=== PATIENT | female | born 1950 | race Caucasian/White ===

== ENCOUNTER 2019-11-11 11:58 | Inpatient (IN) | payer BC, MEDICARE, OTHER ==
[2019-11-11] MEDS ORDERED: Sodium Chloride 0.9% 10 ML Syringe FLUSH PRN ×2 (12:25→14:10)
[2019-11-11] MEDS ORDERED: Prochlorperazine 10 MG/2 ML SDV IVPUSH ONE (12:26)
--- NOTE | 2019-11-11 12:38 | EDM.PDOC ---
ED HPI GENERAL MEDICAL PROBLEM - General Chief Complaint: Abdominal Pain Stated Complaint: ABD PAIN AND VOMITING Time Seen by Provider: 11/11/19 12:20 Source of Information: Reports: Patient, Old Records, RN History Limitations: Reports: No Limitations - History of Present Illness INITIAL COMMENTS - FREE TEXT/NARRATIVE: 69 yo female presents with vomiting and epigastric pain since early yesterday. Had gastric bypass per Dr. Tatum about 7 yrs ago. No hematemesis. BM's have been normal. Pain is worse if she tries to swallow anything. Lives in [place]. Onset: Sudden Onset Date: 11/10/19 Duration: Day(s): (1+), Constant Location: Reports: Abdomen (upper) Quality: Reports: Pressure Severity: Moderate Improves with: Reports: Other (not eating or drinking) Worsens with: Reports: Eating (or drinking) Context: Reports: Other (see HPI) Associated Symptoms: Reports: Nausea/Vomiting. 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 (see below) (none) abdominal Pain Score (Numeric/FACES): 3 - Related Data Allergies Allergy/AdvReac Type Severity Reaction Status Date / Time hydromorphone HCl Allergy Mild Itching Verified 11/11/19 12:22 [From Dilaudid] Home Meds: Home Meds Amitriptyline HCl 50 mg PO DAILY 03/18/13 [History] Citalopram Hydrobromide [Citalopram HBr] 20 mg PO DAILY 03/18/13 [History] LORazepam [Ativan] 1 mg PO ASDIRECTED PRN 03/18/13 [History] buPROPion [Wellbutrin XL] 150 mg PO ASDIRECTED 03/18/13 [History] buPROPion [Wellbutrin] 2 tab PO QAM 04/22/13 [History] ED ROS GENERAL - Review of Systems Review Of Systems: See Below Constitutional: Reports: No Symptoms HEENT: Reports: No Symptoms Respiratory: Reports: No Symptoms Cardiovascular: Reports: No Symptoms GI/Abdominal: Reports: Abdominal Pain, Nausea, Vomiting. Denies: Black Stool, Bloody Stool, Constipation, Diarrhea, Distension, Flatus, Hematemesis, Hematochezia : Reports: No Symptoms Musculoskeletal: Reports: No Symptoms Skin: Reports: No Symptoms Neurological: Reports: No Symptoms ED EXAM, GI/ABD - Physical Exam Exam: See Below Exam Limited By: No Limitations General Appearance: Alert, WD/WN, No Apparent Distress Eyes: Bilateral: Normal Appearance Ears: Normal External Exam, Normal Canal, Hearing Grossly Normal Nose: Normal Inspection, No Blood Throat/Mouth: Normal Inspection, Normal Lips, Normal Oropharynx, Normal Voice, No Airway Compromise Head: Atraumatic, Normocephalic Neck: Normal Inspection Respiratory/Chest: No Respiratory Distress, Lungs Clear, Normal Breath Sounds, No Accessory Muscle Use Cardiovascular: Regular Rate, Rhythm, No Edema GI/Abdominal Exam: Soft, No Distention, Tender (epigastrium). No: Non-Tender, Distended, Guarding, Rigid, Rebound Back Exam: Normal Inspection. No: CVA Tenderness (R), CVA Tenderness (L) Extremities: Normal Inspection, Normal Range of Motion, Non-Tender, No Pedal Edema Neurological: Alert, Oriented, CN II-XII Intact, Normal Cognition, No Motor/ Sensory Deficits Psychiatric: Normal Affect, Normal Mood Skin Exam: Warm, Dry, Intact, Normal Color, No Rash Course - Vital Signs Text/Narrative:: Dr. Tatum called @ 1509h Last Recorded V/S: Last Vital Signs Temp 35.8 C L 11/11/19 12:34 Pulse 61 11/11/19 14:48 Resp 12 11/11/19 14:48 BP 124/63 11/11/19 14:48 Pulse Ox 100 11/11/19 14:48 - Orders/Labs/Meds Orders: Active Orders 24 hr Category Date Time Status Abdomen Pelvis w Cont [CT] Stat Exams 11/11/19 13:35 Taken Lactated Ringers @ 150 MLS/HR(1,000ml) Med 11/11/19 15:15 Ordered Lactated Ringers [Ringers, Lactated] 1,000 ml IV ASDIRECTED Lactated Ringers [Ringers, Lactated] 1,000 ml Med 11/11/19 12:45 Active IV ASDIRECTED Sodium Chloride 0.9% [Saline Flush] Med 11/11/19 12:25 Active 10 ml FLUSH ASDIRECTED PRN Saline Lock Insert [OM.PC] Routine Oth 11/11/19 12:25 Ordered Medication Orders Lactated Ringer's (Ringers, Lactated) 1,000 mls @ 500 mls/hr IV ASDIRECTED LOYDA Last Admin: 11/11/19 12:44 Dose: 500 mls/hr Lactated Ringer's (Ringers, Lactated) 1,000 mls @ 150 mls/hr IV ASDIRECTED LOYDA Sodium Chloride (Saline Flush) 10 ml FLUSH ASDIRECTED PRN PRN Reason: Keep Vein Open Labs: Laboratory Tests 11/11/19 11/11/19 11/11/19 Range/Units 12:35 12:35 12:35 WBC 8.3 (4.5-11.0) K/uL RBC 5.16 (3.30-5.50) M/uL Hgb 15.2 H D (12.0-15.0) g/dL Hct 48.1 H (36.0-48.0) % MCV 93 (80-98) fL MCH 30 (27-31) pg MCHC 32 (32-36) % Plt Count 334 (150-400) K/uL Sodium 140 (140-148) mmol/L Potassium 4.6 (3.6-5.2) mmol/L Chloride 103 (100-108) mmol/L Carbon Dioxide 29 (21-32) mmol/L Anion Gap 8.1 (5.0-14.0) mmol/L BUN 19 H D (7-18) mg/dL Creatinine 1.2 H D (0.6-1.0) mg/dL Est Cr Clr Drug Dosing 34.33 mL/min Estimated GFR (MDRD) 45 L (>60) Glucose 109 H (74-106) mg/dL Calcium 9.3 (8.5-10.1) mg/dL Lipase (73-393) U/L Urine Color Yellow (YELLOW) Urine Appearance Cloudy A (CLEAR) Urine pH 7.0 (5.0-8.0) Ur Specific [place] 1.025 (1.008-1.030) Urine Protein 30 H (NEGATIVE) mg/dL Urine Glucose (UA) Negative (NEGATIVE) mg/dL Urine Ketones Trace H (NEGATIVE) mg/dL Urine Occult Blood Negative (NEGATIVE) Urine Nitrite Negative (NEGATIVE) Urine Bilirubin Small H (NEGATIVE) Urine Urobilinogen 1.0 (0.2-1.0) EU/dL Ur Leukocyte Esterase Small H (NEGATIVE) Urine RBC 0-5 (0-5) Urine WBC 5-10 H (0-5) Ur Epithelial Cells Rare Amorphous Sediment Many Urine Bacteria Few Urine Mucus Many Urine Other See note 11/11/19 Range/Units 12:41 WBC (4.5-11.0) K/uL RBC (3.30-5.50) M/uL Hgb (12.0-15.0) g/dL Hct (36.0-48.0) % MCV (80-98) fL MCH (27-31) pg MCHC (32-36) % Plt Count (150-400) K/uL Sodium (140-148) mmol/L Potassium (3.6-5.2) mmol/L Chloride (100-108) mmol/L Carbon Dioxide (21-32) mmol/L Anion Gap (5.0-14.0) mmol/L BUN (7-18) mg/dL Creatinine (0.6-1.0) mg/dL Est Cr Clr Drug Dosing mL/min Estimated GFR (MDRD) (>60) Glucose (74-106) mg/dL Calcium (8.5-10.1) mg/dL Lipase 250 (73-393) U/L Urine Color (YELLOW) Urine Appearance (CLEAR) Urine pH (5.0-8.0) Ur Specific [place] (1.008-1.030) Urine Protein (NEGATIVE) mg/dL Urine Glucose (UA) (NEGATIVE) mg/dL Urine Ketones (NEGATIVE) mg/dL Urine Occult Blood (NEGATIVE) Urine Nitrite (NEGATIVE) Urine Bilirubin (NEGATIVE) Urine Urobilinogen (0.2-1.0) EU/dL Ur Leukocyte Esterase (NEGATIVE) Urine RBC (0-5) Urine WBC (0-5) Ur Epithelial Cells Amorphous Sediment Urine Bacteria Urine Mucus Urine Other Meds: Medications Generic Name Dose Route Start Last Admin Trade Name Freq PRN Reason Stop Dose Admin Lactated Ringer's 1,000 mls @ 500 mls/hr 11/11/19 12:45 11/11/19 12:44 Ringers, Lactated IV 500 mls/hr ASDIRECTED LOYDA Administration Lactated Ringer's 1,000 mls @ 150 mls/hr 11/11/19 15:15 Ringers, Lactated IV ASDIRECTED LOYDA Sodium Chloride 10 ml 11/11/19 12:25 Saline Flush FLUSH ASDIRECTED PRN Keep Vein Open Discontinued Medications Generic Name Dose Route Start Last Admin Trade Name Freq PRN Reason Stop Dose Admin Sodium Chloride 70 mls @ 3 mls/sec 11/11/19 14:15 11/11/19 14:37 Normal Saline IV 11/11/19 14:16 3 mls/sec ASDIRECTED LOYDA Administration Iopamidol 92 ml 11/11/19 14:10 11/11/19 14:37 Isovue-300 (61%) IV 11/11/19 14:11 92 ml ONETIME ONE Administration Prochlorperazine Edisylate 5 mg 11/11/19 12:26 11/11/19 12:45 Compazine IVPUSH 11/11/19 12:27 5 mg ONETIME ONE Administration Sodium Chloride 10 ml 11/11/19 14:10 11/11/19 14:37 Saline Flush FLUSH 11/11/19 14:11 10 ml ONETIME PRN Administration per radiology protocol - Radiology Interpretation Free Text/Narrative:: CT abd/pelvis with IV contrast-SBO CT Results Date: 11/11/19 CT Results Time: 15:08 Departure - Departure Time of Disposition: 15:25 Disposition: Admitted As Inpatient 68 Condition: Fair Clinical Impression: SBO (small bowel obstruction) - Discharge Information *PRESCRIPTION DRUG MONITORING PROGRAM REVIEWED*: Not Applicable *COPY OF PRESCRIPTION DRUG MONITORING REPORT IN PATIENT BALA: Not Applicable Referrals: PCP,None [Primary Care Provider] - Forms: ED Department Discharge Sepsis Event Note (ED) - Focused Exam Vital Signs: Vital Signs Temp Pulse Resp BP Pulse Ox 11/11/19 14:48 61 12 124/63 100 11/11/19 13:38 70 12 126/67 98 11/11/19 12:34 35.8 C L 80 16 131/77 99 11/11/19 12:21 35.8 C L 80 16 131/77 99 - My Orders Last 24 Hours: My Active Orders 11/11/19 12:25 Sodium Chloride 0.9% [Saline Flush] 10 ml FLUSH ASDIRECTED PRN Saline Lock Insert [OM.PC] Routine 11/11/19 12:45 Lactated Ringers [Ringers, Lactated] 1,000 ml IV ASDIRECTED 11/11/19 13:35 Abdomen Pelvis w Cont [CT] Stat 11/11/19 15:15 Lactated Ringers @ 150 MLS/HR(1,000ml) Lactated Ringers [Ringers, Lactated] 1, 000 ml IV ASDIRECTED - Assessment/Plan Last 24 Hours: My Active Orders 11/11/19 12:25 Sodium Chloride 0.9% [Saline Flush] 10 ml FLUSH ASDIRECTED PRN Saline Lock Insert [OM.PC] Routine 11/11/19 12:45 Lactated Ringers [Ringers, Lactated] 1,000 ml IV ASDIRECTED 11/11/19 13:35 Abdomen Pelvis w Cont [CT] Stat 11/11/19 15:15 Lactated Ringers @ 150 MLS/HR(1,000ml) Lactated Ringers [Ringers, Lactated] 1, 000 ml IV ASDIRECTED
[2019-11-11] MEDS ORDERED: Lactated Ringers 1,000 ML IV SCH ×2 (12:45→15:15)
[2019-11-11] MEDS ORDERED: Iopamidol 612 MG/ML 500 ML Multipack Bottle IV ONE (14:10)
--- NOTE | 2019-11-11 15:32 | CT ---
Abdomen Pelvis w Cont CLINICAL HISTORY: Postprandial 20, previous bariatric surgery COMPARISON: None. TECHNIQUE: Axial tomographic images are obtained from the dome of the diaphragm to the pubic symphysis with IV contrast enhancement. No oral contrast was used. Auto dosage reduction and iterative reconstruction techniques employed. FINDINGS: There is dilatation of the gastric remanent outgoing lobe of the Yusuf-en-Y down to the left lower quadrant. There is some fluid in the distal esophagus also. There is dilated bowel in the right and midabdomen with with some fecalization of small bowel content. There is some counterclockwise swirling of the descending mesenteric vessels The lung bases are clear. The liver shows no biliary dilatation. There is a 9 mm low-attenuation focus in the posterior segment of the right lobe. This most likely represents a small cyst.. The gallbladder has been removed. The spleen has a normal size and shape. The pancreas shows no mass or inflammatory change. The adrenal glands appear normal bilaterally. There is a subcentimeter cyst on the right kidney. No stones or hydronephrosis seen. The aorta has a normal contour. There is no suspicious retroperitoneal adenopathy. IMPRESSION: Prior bariatric surgery Partial small bowel obstruction
[2019-11-11] MEDS ORDERED: Ondansetron 4 MG/2 ML SDV IVPUSH PRN (15:51)
[2019-11-11] MEDS: Pantoprazole 40 MG Vial IVPUSH SCH (18:49)
[2019-11-11] MEDS: Dextrose 5%-Lactated Ringers 1,000 ML IV SCH (21:50)
[2019-11-12] MEDS: Dextrose 5%-Lactated Ringers 1,000 ML IV SCH ×3 (04:13→21:12)
[2019-11-12] MEDS ORDERED: Bupivacaine 0.5% 50 ML MDV ONE (06:17)
[2019-11-12] MEDS ORDERED: Ondansetron 4 MG/2 ML SDV ONE (06:17)
[2019-11-12] MEDS ORDERED: Meropenem 500 MG SDV ONE (06:17)
[2019-11-12] MEDS ORDERED: Dexamethasone 4 MG/ML SDV ONE (06:17)
[2019-11-12] MEDS ORDERED: fentaNYL 250 MCG/5 ML SDV ONE ×2 (06:17→07:52)
[2019-11-12] MEDS ORDERED: Neostigmine Methylsulfate 1 MG/ML 5 ML Syringe ONE (06:17)
[2019-11-12] MEDS ORDERED: Succinylcholine 200 MG/10 ML MDV ONE (06:17)
[2019-11-12] MEDS ORDERED: Rocuronium 50 MG/5 ML Vial ONE (06:17)
[2019-11-12] MEDS ORDERED: Glycopyrrolate 0.2 MG/ML 5 ML MDV ONE (06:17)
[2019-11-12] MEDS ORDERED: Lidocaine 1% with EPINEPHrine 1:100,000 50 ML MDV ONE (06:17)
[2019-11-12] MEDS ORDERED: Propofol 200 MG/20 ML SDV ONE (06:17)
[2019-11-12] MEDS ORDERED: cefOXitin 2 GM in Sodium Chloride 0.9% 50 ML IV ONE (07:15)
[2019-11-12] MEDS ORDERED: Ketamine 50 MG in Sodium Chloride 0.9% 49.5 ML IV SCH (07:30)
[2019-11-12] MEDS ORDERED: Ketamine 500 MG/5 ML MDV IV SCH (07:30)
[2019-11-12] MEDS ORDERED: Magnesium Sulfate 2.9 GM in Sodium Chloride 0.9% 250 ML IV ONE (07:30)
[2019-11-12] MEDS ORDERED: Magnesium Sulfate 1.8 GM in Sodium Chloride 0.9% 100 ML IV SCH (07:30)
[2019-11-12] MEDS ORDERED: Ropivacaine 30 ML, dexAMETHasone 8 MG, EPINEPHrine 0.4 MG, Sodium Chloride 0.9% 47.6 ML NERVRT SCH ×4 (07:30)
[2019-11-12] MEDS ORDERED: Celecoxib 200 MG Cap PO SCH (09:00)
[2019-11-12] MEDS ORDERED: hydrOXYzine HCL 100 MG/2 ML SDV IM ONE (09:31)
[2019-11-12] MEDS ORDERED: Calcium Gluconate 10% 1 GM/10 ML SDV IVPUSH PRN (10:24)
[2019-11-12] MEDS ORDERED: Metoclopramide 10 MG/2 ML SDV IVPUSH PRN (10:24)
[2019-11-12] MEDS ORDERED: Morphine 4 MG/ML Syringe IVPUSH PRN (10:24)
[2019-11-12] MEDS ORDERED: Labetalol 20 MG/4 ML Syringe IVPUSH PRN (10:24)
[2019-11-12] MEDS ORDERED: Acetaminophen 500 MG Tab PO PRN (10:24)
[2019-11-12] MEDS ORDERED: diphenhydrAMINE 50 MG/ML SDV IVPUSH PRN (10:24)
[2019-11-12] MEDS ORDERED: SCOPOLAMINE PATCH CHECK TOP SCH (10:24)
[2019-11-12] MEDS ORDERED: hydrOXYzine HCL 100 MG/2 ML SDV IM PRN (10:24)
[2019-11-12] MEDS ORDERED: Ondansetron 4 MG/2 ML SDV IVPUSH PRN (10:24)
[2019-11-12] MEDS ORDERED: Cyclobenzaprine 10 MG Tab PO PRN (10:24)
[2019-11-12] MEDS ORDERED: LORazepam 1 MG Tab PO PRN (10:33)
[2019-11-12] MEDS: oxyCODONE 5 MG Tab PO PRN ×2 (11:45→17:35)
[2019-11-12] MEDS: Morphine 2 MG/ML SYRINGE IVPUSH PRN ×2 (11:45→15:26)
[2019-11-12] MEDS: Citalopram 20 MG Tab PO SCH (11:49)
[2019-11-12] MEDS: cefOXitin 2 GM in Sodium Chloride 0.9% 50 ML IV SCH ×2 (13:50→19:38)
[2019-11-12] MEDS: Acetaminophen 500 MG Tab PO SCH ×2 (15:15→21:04)
[2019-11-12] MEDS: Heparin Sodium 5,000 Units/ML Vial SUBCUT SCH (15:29)
[2019-11-12] MEDS: Pantoprazole 40 MG Vial IVPUSH SCH (17:29)
[2019-11-12] MEDS: MVI, Adult with Vitamin K 10 ML, Thiamine 200 MG, Chromium/Copper/Mang/Selen/Zn 1 ML in... IV SCH ×4 (17:38)
[2019-11-13] MEDS: cefOXitin 2 GM in Sodium Chloride 0.9% 50 ML IV SCH (00:56)
[2019-11-13] MEDS: oxyCODONE 5 MG Tab PO PRN ×5 (01:05→21:56)
[2019-11-13] MEDS ORDERED: Iopamidol 612 MG/ML 50 ML SDV PO STA (04:09)
[2019-11-13] MEDS: Dextrose 5%-Lactated Ringers 1,000 ML IV SCH (04:21)
[2019-11-13] MEDS: Morphine 2 MG/ML SYRINGE IVPUSH PRN ×3 (04:26→20:29)
[2019-11-13] MEDS: Heparin Sodium 5,000 Units/ML Vial SUBCUT SCH ×2 (05:03→17:13)
[2019-11-13] MEDS: Acetaminophen 500 MG Tab PO SCH ×3 (05:03→21:56)
[2019-11-13] MEDS ORDERED: Dextrose 5%-Lactated Ringers 1,000 ML IV SCH (08:15)
[2019-11-13] MEDS: Celecoxib 200 MG Cap PO SCH ×2 (08:40→20:32)
[2019-11-13] MEDS: Bisacodyl 5 MG Tab PO SCH ×2 (08:41→20:32)
[2019-11-13] MEDS: Docusate Sodium 100 MG Cap PO SCH ×2 (08:41→20:32)
[2019-11-13] MEDS: Citalopram 20 MG Tab PO SCH (08:41)
--- NOTE | 2019-11-13 13:15 | PN ---
DATE OF SERVICE: 11/13/2019 The patient has been afebrile with stable vital signs. Her pain control is a little bit marginal with a q.6 hours oxycodone regimen and will go up to q.4 hours with that, otherwise begin a step-3 diet with back down on the IV rate. We will begin some bowel stimulation and tentatively plan for discharge home tomorrow. Jossue Tatum MD /[id number]
[2019-11-13] MEDS: MVI, Adult with Vitamin K 10 ML, Thiamine 200 MG, Chromium/Copper/Mang/Selen/Zn 1 ML in... IV SCH ×8 (14:16→15:28)
[2019-11-13] MEDS: Pantoprazole 40 MG Vial IVPUSH SCH (17:13)
[2019-11-13] MEDS ORDERED: diphenhydrAMINE 25 MG Cap PO PRN (22:39)
[2019-11-13] MEDS ORDERED: Metoclopramide 10 MG Tab PO PRN (22:40)
[2019-11-13] MEDS ORDERED: Ondansetron 4 MG Tab.DIS PO PRN (22:40)
[2019-11-14] MEDS: oxyCODONE 5 MG Tab PO PRN ×2 (02:09→07:47)
[2019-11-14 03:45] VITALS: PULSE 65
[2019-11-14] MEDS: Heparin Sodium 5,000 Units/ML Vial SUBCUT SCH (05:02)
[2019-11-14] MEDS: Acetaminophen 500 MG Tab PO SCH (05:02)
[2019-11-14 07:06] VITALS: BP 163/83
[2019-11-14] MEDS ORDERED: Cyanocobalamin (Vitamin B12) 1,000 MCG/ML SDV IM ONE (09:00)
--- NOTE | 2019-11-14 09:55 | CR ---
UGI Limited HISTORY: Postbariatric surgery FINDINGS: Patient swallowed water-soluble contrast. Upright views of the abdomen show no evidence of extravasation or obstruction. IMPRESSION: Status post bariatric surgery No extravasation or obstruction seen
--- NOTE | 2019-11-14 12:13 | DISCH ---
ADMISSION DIAGNOSES: Abdominal pain, nausea, vomiting, status post Yusuf-en-Y gastric bypass surgery, unspecified surgical malabsorption, B12 deficiency, vitamin D deficiency, anxiety and depression. DISCHARGE DIAGNOSES: Exploratory laparotomy with lysis of adhesions: 1. Reduction of small bowel volvulus and closure of internal hernia. 2. Revision of a jejunojejunostomy Yusuf-en-Y gastric bypass. 3. Separate small bowel strictureplasty. 4. Placement of Interceed mesh. POSTOPERATIVE DIAGNOSES: 1. Small bowel obstruction secondary to small bowel volvulus. 2. Edematous jejunojejunostomy. 3. Separate small-bowel stricture at the jejunojejunostomy biliary pancreatic limb. 4. Excision of intra-abdominal adhesions. 5. Date of surgery: 11/12/2019. Surgeon: Jossue Tatum MD. HISTORY: Laureen Fowler is a 69-year-old female with history of Yusuf-en-Y gastric bypass surgery. She presented to the emergency room with almost a 36-hour history of vomiting, mid epigastric abdominal pain. After preoperative evaluation and discussion of possible risks and possible complications, she wished to proceed with surgical procedure. HOSPITAL COURSE: She was admitted on 11/11/2019, given IV fluids, and had her surgery on 11/12/2019. She had no operative complications. On postoperative day #1, started on a step 3 gastric bypass diet. Her IV rate was decreased to 100 mL per hour. Vital signs were stable. She was given bowel stimulation. On 11/14/2019, she was able to be discharged to home. PHYSICAL EXAMINATION: GENERAL: Laureen Fowler is a pleasant 69-year-old female. VITAL SIGNS: Height is 5 feet 1 inch, weight is 135 pounds, BMI 25.5. TPR at 06:56, 97.9; 65; 18; blood pressure 163/83. HEENT: Negative. NECK: Supple. HEART: Regular rate and rhythm. LUNGS: Clear. ABDOMEN: Aquacel dressing is on, will be replaced prior to discharge. Abdominal binder has been on. EXTREMITIES: Without peripheral edema. DISPOSITION: Discharged to home. CONDITION: Stable and improving. FOLLOWUP: Appointment with Eliana Saucedo PA-C, on 11/22/2019 at 11 a.m. HOME MEDICATIONS: 1. Tylenol 1000 mg every 8 hours p.r.n. pain. 2. Celebrex 200 mg oral b.i.d. scheduled, #28. 3. Flexeril 10 mg oral every 8 hours p.r.n. muscle spasms. 4. Zofran ODT 4 mg every 4 hours p.r.n. nausea, #30. 5. Oxycodone 5 mg every 4 hours p.r.n. pain, #42. 6. She is to resume her home medications of: a. Citalopram 20 mg oral daily. b. Ativan 1 mg oral as directed p.r.n. anxiety. c. Wellbutrin 75 mg oral twice daily. DIET AFTER DISCHARGE: Step 3 gastric bypass diet. Drink 8 to 10 glasses of water a day. ACTIVITY: No lifting greater than 10 pounds for 6 weeks. OTHER ACTIVITY: Walk 10 minutes for every 1 hour in the car. Driving: Do not drive for 1 week. Shower/bathing: May shower. DISCHARGE INSTRUCTIONS: Notify provider if any increased pain, nausea, vomiting, redness. Wound incision care: Keep site clean and dry. Take off Aquacel dressing on , 11/17/2019. Wear abdominal binder for 6 weeks if tolerated. SPECIAL INSTRUCTIONS: 1. Use incentive spirometer 10 times every hour while awake. 2. When in the airplane, stand or get up and walk at least every hour. 3. To take 1 baby aspirin a day until 1st appointment. 4. Wear thigh high WARREN stockings when traveling in the car and plane. You can wear them at other times if you want to.
[2019-11-14] MEDS ORDERED: Pantoprazole 40 MG Tab.CR PO SCH (16:00)
--- NOTE | 2019-11-16 13:22 | OR ---
DATE OF PROCEDURE: 11/12/2019 SURGEON: Jossue Tatum MD PREOPERATIVE DIAGNOSIS: Small bowel obstruction. POSTOPERATIVE DIAGNOSES: 1. Small bowel obstruction secondary to small bowel volvulus with distorted and edematous jejunojejunostomy. 2. Separate small bowel stricture at biliopancreatic common limb anastomotic site. 3. Extensive intraabdominal adhesions. OPERATIVE PROCEDURES: Exploratory laparotomy with lysis of adhesions, 1. Reduction of small bowel volvulus and closure of internal hernia (47947). 2. Revision of jejunojejunostomy component of Yusuf-en-Y gastric bypass (21763). 3. Separate small bowel stricturoplasty ([id number]). 4. Placement of Interceed mesh across the pelvic and abdominal wall to limit recurrent adhesion formation between those surfaces and underlying viscera ([id number]). ANESTHESIA: General. INDICATION FOR PROCEDURE: This is a 69-year-old, presenting status post Yusuf-en-Y gastric bypass with picture of a small bowel obstruction. CT scan showed some evidence of swelling consistent with some probable volvulus. Plan is to proceed with a limited laparotomy with reduction of volvulus as identified and small bowel resection as indicated. Potential risks including bleeding, infection, injury to underlying viscera, possible recurrence of the small bowel obstruction over time were all reviewed with the patient, and she wishes to proceed. DETAILS OF PROCEDURE: The patient was taken to the operating room and after general endotracheal anesthesia was induced, a Renner catheter was inserted, and the abdomen prepped and draped. An incision was then made from the umbilicus, roughly a handsbreadth, toward the xiphoid and continued down through the skin, subcutaneous tissue, and fascia. Upon entering the peritoneal cavity, significant amount of the small bowel was noted to have somewhat grayish-appearance, consistent with some venous hypertension. As the bowel was evaluated, it was noted that there was a volvulus between most of the small bowel underneath the Yusuf limb as it passed up toward the epigastric area. This was eventually reduced and, at that point, all of the bowel appeared to be viable. There was marked edema and narrowing of the point where the Yusuf limb entered the jejunojejunostomy. It was felt that anastomosis will need to be revised. This was initially divided at the level of junction of the Uysuf limb and the jejunojejunostomy with SMILEY stapler and so a segment of the small bowel was resected and sent for histologic evaluation. The point where the common limb was attached to the biliopancreatic limb was noted to be quite stenotic. At this point, this was revised additionally with a stricturoplasty. The antimesenteric aspect of that junction was opened and one limb of a 60-mm SMILEY galdamez load was placed into the bowel on each side and fired. The common opening was then closed transversely with the SMILEY purple load. The angles of anastomosis were reinforced with some 3-0 Vicryl stitch. In this case, there was no mesenteric defect to close. The Yusuf limb was then reattached to the small bowel roughly 30 cm distal to the previous anastomosis with a [id number] enteroenterostomy with internal firing of the SMILEY 60 mm stapler. Common opening was then closed transversely with purple load, and the angles of anastomosis were reinforced with some 3-0 Vicryl stitch. In this case, the mesenteric defect was closed with a 2-0 silk stitch to provide some permanency. The mesenteric defect underlying the Yusuf limb was then also closed with a running 2-0 silk stitch. At this point, no further problems were noted. The abdomen was irrigated with meropenem-containing saline solution. Interceed mesh was then placed underneath the incision and from there down toward the pelvis to limit recurrent adhesion formation between all those surfaces and the underlying viscera. The midline fascia was then approximated with #2 Vicryl stitch. Subcutaneous tissue was approximated with two layers of 3-0 and 4-0 Vicryl stitch, and the skin with madhavi. Prior to closure, bilateral transversus abdominis plane blocks were placed, and the incision was anesthetized with 1% lidocaine mixed with Marcaine. The patient was taken to the recovery room in satisfactory condition. For documentation purposes, the present Yusuf limb is 100 cm, biliopancreatic limb 250 cm, and the common limb 250 cm. Jossue Tatum MD /[id number]
== END 2019-11-14 09:29 | disposition home or self-care (01) | DRG 326 ==
LOC: JP.ED 11:58 → JP.MS 15:42
PROVIDERS: ADMIT Surgery; ATTEND Surgery
PROC: 0DN80ZZ Release Small Intestine, Open Approach (ICD-10-PCS; principal; 2019-11-11)
PROC: 0D160ZA Bypass Stomach to Jejunum, Open Approach (ICD-10-PCS; 2019-11-11)
PROC: 0DS80ZZ Reposition Small Intestine, Open Approach (ICD-10-PCS; 2019-11-11)
PROC: 3E0M05Z Introduction of Adhesion Barrier into Peritoneal Cavity, Open Approach (ICD-10-PCS; 2019-11-11)
DX: K56.600 Partial intestinal obstruction, unspecified as to cause (principal); K94.10 Enterostomy complication, unspecified; K56.2 Volvulus; K91.2 Postsurgical malabsorption, not elsewhere classified; Z88.6 Allergy status to analgesic agent; Y83.8 Other surgical procedures as the cause of abnormal reaction of the patient, or of later complication, without mention of misadventure at the time of the procedure; E53.8 Deficiency of other specified B group vitamins; E55.9 Vitamin D deficiency, unspecified; F41.9 Anxiety disorder, unspecified; F32.9 Major depressive disorder, single episode, unspecified; Z98.84 Bariatric surgery status; Z88.5 Allergy status to narcotic agent; Z79.899 Other long term (current) drug therapy; Z20.828 Contact with and (suspected) exposure to other viral communicable diseases
CPT/HCPCS: 36415; 74177 ×2; 80048; 81001; 83690; 85027; 96361; 96374; 99284; 99285; J0780; J7050; J7120 ×2; Q9967; 74240; 74240-26; 80053; 82607; 82728; 82746; 83735; 84100; 88307; 94762; A9270-GY; C9113; J0171; J0330; J0694; J1100; J1644; J2020; J2185; J2270; J2405; J2704; J2710; J2795; J3010; J3410; J3411; J3475; J3490; J7121; U0002

== ENCOUNTER 2021-06-07 12:13 | Emergency (ER) | payer MEDICARE ==
[2021-06-07 12:30] VITALS: BP 150/60; PULSE 59
--- NOTE | 2021-06-07 12:56 | EDM.PDOC ---
ED HPI GENERAL MEDICAL PROBLEM - General Chief Complaint: Gastrointestinal Problem Stated Complaint: ISSUES KEEPING FOOD DOWN Time Seen by Provider: 06/07/21 12:40 Source of Information: Reports: Patient, Family, RN Notes Reviewed History Limitations: Reports: No Limitations - History of Present Illness INITIAL COMMENTS - FREE TEXT/NARRATIVE: 71-year-old female presents emergency department day complaint with difficulty swallowing, she has a known history of gastric bypass about 8 years ago had difficulty with stenosis about a year and a half ago had the undergo EGD with di lation. She states it feels the same as it did about a year and a half ago she is able to swallow her own secretions. No nausea no vomiting no shortness of breath no chest pain no abdominal pain - Related Data Allergies Allergy/AdvReac Type Severity Reaction Status Date / Time hydromorphone HCl Allergy Mild Itching Verified 06/07/21 12:30 [From Dilaudid] Latex, Natural Rubber Allergy Rash Verified 06/07/21 12:35 Home Meds: Home Meds Amitriptyline HCl 50 mg PO DAILY 03/18/13 [History] Citalopram Hydrobromide [Citalopram HBr] 20 mg PO DAILY 03/18/13 [History] LORazepam [Ativan] 1 mg PO ASDIRECTED PRN 03/18/13 [History] Celecoxib [CeleBREX] 200 mg PO BEDTIME 06/07/21 [History] Past Medical History HEENT History: Reports: Impaired 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: Psychiatric History: Reports: Depression - Past Surgical History GI Surgical History: Reports: Bariatric Procedure, Cholecystectomy, EGD, Other (See Below) Other GI Surgeries/Procedures: egd with dilitation Female Surgical History: Reports: Hysterectomy Musculoskeletal Surgical History: Reports: Other (See Below) Other Musculoskeletal Surgeries/Procedures:: knee surgery, rotator cuff right Social & Family History - Tobacco Use Tobacco Use Status *Q: Never Tobacco User - Caffeine Use Caffeine Use: Reports: Energy Drinks, Tea - Recreational Drug Use Recreational Drug Use: No ED ROS GENERAL - Review of Systems Review Of Systems: See Below Constitutional: Reports: No Symptoms HEENT: Reports: Other (Difficulty swallowing) Respiratory: Reports: No Symptoms Cardiovascular: Reports: No Symptoms GI/Abdominal: Reports: Difficulty Swallowing. Denies: Abdominal Pain, Nausea, Vomiting ED EXAM, GI/ABD - Physical Exam Exam: See Below Exam Limited By: No Limitations General Appearance: Alert, WD/WN, No Apparent Distress Respiratory/Chest: No Respiratory Distress, Lungs Clear, Normal Breath Sounds, No Accessory Muscle Use, Chest Non-Tender Cardiovascular: Regular Rate, Rhythm, No Murmur GI/Abdominal Exam: Soft, Non-Tender, Other (Was able to tolerate small sips of water without difficulty) Course - Vital Signs Last Recorded V/S: Last Vital Signs Temp 97.2 F 06/07/21 12:28 Pulse 59 L 06/07/21 12:28 Resp 16 06/07/21 12:28 BP 150/60 H 06/07/21 12:28 Pulse Ox 97 06/07/21 12:28 Departure - Departure Time of Disposition: 12:55 Disposition: Home, Self-Care 01 Condition: Fair Clinical Impression: Dysphagia Qualifiers: Dysphagia type: unspecified Qualified Code(s): R13.10 - Dysphagia, unspecified - Discharge Information Instructions: Dysphagia Referrals: PCP,None [Primary Care Provider] - Additional Instructions: Do not eat after midnight, the outpatient surgery center will call you for when to show up for your EGD with dilation call or return to the emergency department worsening of symptoms Sepsis Event Note (ED) - Evaluation Sepsis Screening Result: No Definite Risk - Focused Exam Vital Signs: Vital Signs Temp Pulse Resp BP Pulse Ox 06/07/21 12:28 97.2 F 59 L 16 150/60 H 97 - Assessment/Plan Plan: Assessment Acuity = acute Site and laterality = dysphagia Etiology = suspicious for underlying stenosis Manifestations = none Location of injury = Home Lab values = none Plan Discussed the case with Dr. Tatum at 1245 he agreed to evaluate the patient in the hospital plan for EGD with dilation tomorrow morning she will be n.p.o. at midnight she was in agreement above plan also discussed case with manager surgical they will call her for when to show up at outpatient surgery This note was dictated using VR1 voice recognition software please call with any questions on syntax or grammar.
[2021-06-07 13:57] LABS: CORONAVIRUS COVID-19 NAA NEGATIVE (NEGATIVE)
== END 2021-06-07 13:20 | disposition home or self-care (01) ==
LOC: JP.ED 12:13
DX: R13.10 Dysphagia, unspecified (principal); Z88.5 Allergy status to narcotic agent; Z91.040 Latex allergy status; Z20.822 Contact with and (suspected) exposure to COVID-19
CPT/HCPCS: 0241U; 99284